=== PATIENT | male | born 1995 | race Caucasian/White ===

== ENCOUNTER 2018-11-14 12:21 | Emergency (ER) | payer OTHER ==
[~2018-11-14] VITALS: Ht 180.3 cm; Wt 99.2 kg
[2018-11-14 12:24] VITALS: BP 147/76; PULSE 94; RESP 18; Ht 180.3 cm; Wt 99.2 kg
--- NOTE | 2018-11-14 13:38 | ERD ---
ER Documentation Chief Complaint Chief Complaint fever & eye pressure since am HPI 23-year-old male with past medical history of Hodgkin's lymphoma status post chemoradiation at 12 years old who presents with complaint of subjective fevers, cough, rhinorrhea, generalized fatigue and head congestion. Patient says s ymptoms started around Wednesday when he had a single episode of nausea with nonbilious nonbloody vomiting. Noticed some hemorrhaging to both eyes after vomiting episode. There is some cough is been productive of yellow sputum. He otherwise denies chest pain, shortness of breath, abdominal pain, urinary symptoms. Reports relatively good health and has not been ill recently prior to this episode. 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 ROS All systems reviewed and are negative except as per history of present illness. Allergies Allergies: Coded Allergies: No Known Allergy (Unverified , 11/14/18) PMhx/Soc Hx Miscellaneous Medical Probl: Yes (hodgkin's lymphoma) Hx Alcohol Use: No Hx Substance Use: Yes (MARIJUANA) Hx Tobacco Use: No Smoking Status: Never smoker FmHx Family History: No diabetes, No coronary disease, No other Physical Exam Vitals Vital Signs Date Temp Pulse Resp B/P (MAP) Pulse Ox O2 O2 Flow FiO2 Time Delivery Rate 11/14/18 99.6 94 18 147/76 97 12:24 (99) Physical Exam I have reviewed the triage vital signs. Const: Well nourished, well developed, appears stated age Eyes: PERRL, no conjunctival injection, redness and hemorrhage noted to b/e eyes HENT: NCAT, Neck supple without meningismus CV: RRR, Warm, well-perfused extremities RESP: CTAB, Unlabored respiratory effort GI: soft, non-tender, non-distended, no masses MSK: No gross deformities appreciated Skin: Warm, dry. No rashes Neuro: grossly non focal Psych: Appropriate mood and affect. Procedures/MDM 23-year-old male presents with flulike symptoms. The patient's clinical presentation is very consistent with an acute viral syndrome. No evidence of pneumonia. 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 Doubt etiology of symptoms warranting emergent medical treatment. The patient is well-appearing without respiratory distress. Normal oxygen saturation. X-ray imaging not indicated. No indication for Tamiflu. The patient does not exhibit any clinical signs or symptoms concerning for serious bacterial infection or systemic illness. Based on history and clinical exam findings the patient does not appear to have evidence of pneumonia, strep pharyngitis, urinary tract infection, bacteremia, sepsis, or meningitis. For these reasons I do not believe it is necessary to obtain laboratory testing or diagnostic imaging. I believe it would be appropriate for symptom control, an d close outpatient primary care follow-up. We discussed follow up with the patient's primary care doctor within 24 to 48 hours as needed. We also discussed return to the emergency room for worsening symptoms or worsening condition. DISPOSITION PLAN: We discussed follow up with the patient's primary care doctor within 24 to 48 hours. Patient counseled regarding my diagnostic impression and care plan. Prior to discharge all questions answered. Pt agrees with treatment plan and understands strict return precautions. Precautionary instructions provided including instructions to return to the ER if not improving or for any worsening or changing symptoms or concerns. Departure Diagnosis: Primary Impression: Acute viral syndrome Condition: Stable Patient Instructions: Viral Syndrome (Adult) NANCY MICHELE PA-C Nov 14, 2018 13:38 MARIANNE CID DO Nov 15, 2018 12:13
== END 2018-11-14 14:09 | disposition home or self-care (01) ==
LOC: FTE 12:21
DX: B34.9 Viral infection, unspecified (principal); Z85.71 Personal history of Hodgkin lymphoma
CPT/HCPCS: 99282